=== PATIENT | male | born 1930 | race Caucasian/White ===

== ENCOUNTER 2016-11-02 15:36 | Inpatient (IN) | payer OTHER ==
[~2016-11-02] VITALS: Ht 177.8 cm; Wt 95.9 kg
[~2016-11-02 15:36] MED LIST: AMLODIPINE BESY10 MG PO; ANTIVERT25 MG PO; APIDRA100 UNITS/ SC; ASPIR 8181 M1 PO; ASPIR-LOW81 MG PO; ATIVAN0.5 MG PO; ATROVENT 0.06%15 ML BOTH NARES; AVAPRO300 MG PO; AZITHROMYCIN500 M1 PO; Antivert PO; Aspirin Chewable PO; BENICAR HCT 401 EACH PO; BENICAR HCT1 TABLE1 PO; BESIVANCE5 ML RIGHT EYE; FISH OIL 1,0001 EAC7 PO; FLOMAX0.4 MG PO; FLUORIDE0.5 MG PO; Fish Oil PO; HUMALOG100 UNIT/2 SC; HYDROCHLOROTH12.5 M3 PO; HYZAAR 100-11 TABLET PO; ILEVRO1.7 ML RIGHT EYE; IRBESARTAN300 MG PO; JANUVIA25 M1 PO; LANTUS 10100 UNITS/ SC; LANTUS 3 M100 UNITS/ SC; LANTUS 3 M100 UNITS1 SC; LO-DOSE ASPIRIN81 M1 PO; LOPRESSOR50 MG PO; LORAZEPAM0.5 MG PO; LOTEMAX5 GM RIGHT EYE; Lopid PO; Lopressor PO; MECLIZINE HCL25 MG PO; MOTION RELIEF25 MG PO; NIZORAL 2% CREA15 GM TP; NIZORAL A-D120 ML TP; NORVASC10 MG PO; OXYCONTIN10 MG PO; PATADAY2.5 ML BOTH EYES; PERCOCET 5/31 TABLET PO; PLAVIX75 MG PO; PRAVACHOL40 MG PO; PRAVASTATIN SOD40 MG PO; PROLENSA1.6 ML RIGHT EYE; RANITIDINE HCL150 M1 PO; SODIUM FLORIDE PO; SPIRONOLACT/HC1 EACH PO; TAMIFLU75 MG PO; TAMSULOSIN HCL0.4 MG PO; UNABLEOBTAIN; VITAMIN D-32000 UNI2 PO; VITAMIN D2000 INTUN PO; VITAMIN D2000 UNIT PO; WELCHOL625 MG PO
[2016-11-02 16:43] LABS: HEMATOCRIT 39.8 % (38.0-50.0); MCH 30.9 PG (29.0-34.0); MCHC 33.4 G/DL (30.0-36.0); MCV 92.3 FL (86-99); RBC DIS.WIDTH-CV 13.1 % (11.8-14.6); RBC DIS.WIDTH-SD 44.7 % (39-53); RED BLOOD COUNT 4.31 M/uL (4.00-5.50)
[2016-11-02 16:53] LABS: CHLORIDE 102 mEq/L (99-109); POTASSIUM 4.5 mEq/L (3.7-5.4); SODIUM 134 mEq/L (136-147)
[2016-11-02 16:56] LABS: GLUCOSE 157 mg/dL (70-99)
[2016-11-02 16:57] LABS: ANION GAP 9 MEQ/L (2-14)
[2016-11-02 16:58] LABS: TOTAL BILIRUBIN 0.5 mg/dL (0.0-1.0)
[2016-11-02 16:59] LABS: ALKALINE PHOSPHATASE 42 IU/L (3-129); GFR ESTIMATE (CALCULATED) 28 mL/min/
[2016-11-02 17:01] LABS: DIRECT BILIRUBIN 0.2 mg/dL (0.0-0.3); UREA NITROGEN (BUN) 23 mg/dL (9-23)
[2016-11-02 17:03] LABS: LIPASE 23 U/L (1.0-51.0)
[2016-11-02 17:31] LABS: MEAN PLAT.VOLUME 10.7 uM^3 (9.0-12.4); PLAT.SUFFICIENCY DECREASED; PLATELET COUNT 146 K/uL (156-360)
[2016-11-02 18:14] LABS: ADD MIUA? NO; BILIRUBIN NEGATIVE; BLOOD NEGATIVE; COLOR YELLOW ((YELLOW)); GLUCOSE (STRIP) NEGATIVE; KETONES NEGATIVE; LEUKOCYTES NEGATIVE; NITRITE NEGATIVE; PROTEIN (STRIP) NEGATIVE; SPECIFIC GRAVITY 1.009 (1.000-1.030); UCUL ADDED? NO; UROBILINOGEN 0.2 MG/DL (0.2-1.0)
[2016-11-02] MEDS ORDERED: HUMALOG100 UNIT/2 SC ×2 (19:33)
[2016-11-02] MEDS ORDERED: KETOCONAZOLE120 ML TP (19:34)
[2016-11-02] MEDS ORDERED: VITAMIN D31000 UNI2 PO (19:34)
[2016-11-02] MEDS ORDERED: TRULICITY1.5 MG/0.5 SC (19:35)
[2016-11-02] MEDS ORDERED: MAGNESIUM400 M1 PO (19:35)
[2016-11-02] MEDS ORDERED: IMODIUM A-D2 M2 PO (19:35)
[2016-11-02] MEDS ORDERED: PRAMIPEXOLE DI0.5 MG PO (19:36)
[2016-11-02] MEDS ORDERED: OXYCONTIN10 MG PO (19:36)
[2016-11-02] MEDS ORDERED: ZOFRAN4 MG PO (19:36)
[2016-11-02] MEDS ORDERED: IRON325 M1 PO (19:36)
[2016-11-02 22:22] VITALS: BP 142/75
[2016-11-02 23:11] LABS: POINT-OF-CARE METER ID UU13113725
[2016-11-03 00:28] VITALS: BP 135/62
[2016-11-03 03:55] VITALS: BP 136/66
[2016-11-03 05:43] LABS: POINT-OF-CARE METER ID UU13113725
[2016-11-03 06:50] VITALS: BP 138/65
[2016-11-03 08:15] LABS: ANION GAP 7 MEQ/L (2-14); CHLORIDE 103 MEQ/L (99-109); GFR ESTIMATE (CALCULATED) 41 mL/min/; GLUCOSE 144 mg/dL (70-99); POTASSIUM 4.1 MEQ/L (3.7-5.4); SAMPLE HEMOLYSIS CHECK 0; SAMPLE ICTERIC CHECK 0; SAMPLE LIPEMIA CHECK 0; SODIUM 136 MEQ/L (136-147); UREA NITROGEN (BUN) 18 mg/dL (9-23)
[2016-11-03 10:07] LABS: C DIFF TOXIN NEGATIVE (NEGATIVE)
[2016-11-03 10:16] LABS: PROBE CHECK PASS; SPECIMEN PROCESSING CONTROL PASS
[2016-11-03 10:32] LABS: HEMATOCRIT 40.8 % (38.0-50.0); MCH 30.9 PG (29.0-34.0); MCHC 32.8 G/DL (30.0-36.0); MCV 94.2 FL (86-99); MEAN PLAT.VOLUME 10.8 uM^3 (9.0-12.4); RBC DIS.WIDTH-CV 13.1 % (11.8-14.6); RED BLOOD COUNT 4.33 M/uL (4.00-5.50); WHITE BLOOD COUNT 8.6 K/uL (4.1-10.2)
[2016-11-03 10:35] LABS: PLATELET COUNT 200 K/uL (156-360)
[2016-11-03 15:22] VITALS: BP 112/57
[2016-11-03 23:36] VITALS: BP 145/65
[2016-11-04 06:43] VITALS: BP 112/65
[2016-11-04 06:53] LABS: ANION GAP 6 MEQ/L (2-14); CHLORIDE 102 MEQ/L (99-109); GFR ESTIMATE (CALCULATED) 44 mL/min/; GLUCOSE 189 mg/dL (70-99); POTASSIUM 3.9 MEQ/L (3.7-5.4); SAMPLE HEMOLYSIS CHECK 0; SAMPLE ICTERIC CHECK 0; SAMPLE LIPEMIA CHECK 0; SODIUM 135 MEQ/L (136-147); UREA NITROGEN (BUN) 20 mg/dL (9-23)
== END 2016-11-04 12:24 | DRG 683 ==
LOC: EME → EDBD 15:36 → EME 15:36 → EDOF 20:30 → 5EAST 20:30
PROVIDERS: Emergency Medicine; Hospitalist; Internal Medicine
DX: N17.9 Acute kidney failure, unspecified (principal); E87.1 Hypo-osmolality and hyponatremia; J98.11 Atelectasis; N18.4 Chronic kidney disease, stage 4 (severe); I12.9 Hypertensive chronic kidney disease with stage 1 through stage 4 chronic kidney disease, or unspecified chronic kidney disease; D69.6 Thrombocytopenia, unspecified; E11.22 Type 2 diabetes mellitus with diabetic chronic kidney disease; E78.5 Hyperlipidemia, unspecified; Z86.73 Personal history of transient ischemic attack (TIA), and cerebral infarction without residual deficits; K52.9 Noninfective gastroenteritis and colitis, unspecified; I44.1 Atrioventricular block, second degree; K80.20 Calculus of gallbladder without cholecystitis without obstruction; K42.9 Umbilical hernia without obstruction or gangrene; K21.9 Gastro-esophageal reflux disease without esophagitis; Z79.4 Long term (current) use of insulin; Z79.84 Long term (current) use of oral hypoglycemic drugs; Z88.2 Allergy status to sulfonamides; Z79.02 Long term (current) use of antithrombotics/antiplatelets; Z83.3 Family history of diabetes mellitus; Z82.49 Family history of ischemic heart disease and other diseases of the circulatory system; Z09 Encounter for follow-up examination after completed treatment for conditions other than malignant neoplasm
CPT/HCPCS: 74176; 80048; 80076; 81003; 82436; 82948; 83690; 84133; 84300; 85027; 87177; 87493; 93005; 99281; 99285; J1644; J1815; J7030; S0028

== ENCOUNTER 2016-11-18 14:37 | Observation (INO) | payer OTHER ==
[~2016-11-18] VITALS: Ht 177.8 cm; Wt 97.6 kg
[~2016-11-18 14:37] MED LIST changes: +IMODIUM A-D2 M2 PO; +IRON325 M1 PO; +KETOCONAZOLE120 ML TP; +MAGNESIUM400 M1 PO; +PRAMIPEXOLE DI0.5 MG PO; +TRULICITY1.5 MG/0.5 SC; +VITAMIN D31000 UNI2 PO; +ZOFRAN4 MG PO
[2016-11-18] MEDS ORDERED: ALDACTAZIDE 251 EACH PO (14:57)
[2016-11-18] MEDS ORDERED: MIRAPEX0.5 MG PO (14:58)
[2016-11-18] MEDS ORDERED: IRBESARTAN300 MG PO (14:58)
[2016-11-18] MEDS ORDERED: HYDROCHLOROTH12.5 M3 PO (14:59)
[2016-11-18] MEDS ORDERED: PLAVIX75 MG PO (14:59)
[2016-11-18] MEDS ORDERED: VITAMIN D31000 UNIT PO (15:00)
[2016-11-18] MEDS ORDERED: PRAVASTATIN SOD40 MG PO (15:01)
[2016-11-18] MEDS ORDERED: IRON325 M1 PO (15:01)
[2016-11-18] MEDS ORDERED: ONDANSETRON HCL4 MG PO (15:02)
[2016-11-18] MEDS ORDERED: JANUVIA25 M1 PO (15:02)
[2016-11-18 16:32] LABS: EOSINOPHIL (%) 1.2 % (0-5); EOSINOPHIL COUNT 0.1 K/uL (0-0.3); HEMATOCRIT 43.1 % (38.0-50.0); IMMATURE GRANULOCYTE (%) 0.3 % (0.0-0.7); INSTRUMENT ABS NEUTROPHIL CT 9.5 K/uL; LYMPHOCYTE COUNT 0.8 K/uL (1.0-2.8); MCH 30.8 PG (29.0-34.0); MCHC 33.4 G/DL (30.0-36.0); MCV 92.1 FL (86-99); MEAN PLAT.VOLUME 10.4 uM^3 (9.0-12.4); MONOCYTE (%) 5.6 % (3-12); MONOCYTE COUNT 0.6 K/uL (0-0.8); NEUTROPHIL (%) 85.3 % (45-76); NEUTROPHIL COUNT 9.5 K/uL (1.8-6.4); PLATELET COUNT 214 K/uL (156-360); RBC DIS.WIDTH-CV 12.7 % (11.8-14.6); RBC DIS.WIDTH-SD 43.1 % (39-53); RED BLOOD COUNT 4.68 M/uL (4.00-5.50); WHITE BLOOD COUNT 11.1 K/uL (4.1-10.2)
[2016-11-18 16:40] LABS: CHLORIDE 103 mEq/L (99-109); POTASSIUM 4.3 mEq/L (3.7-5.4); SODIUM 138 mEq/L (136-147)
[2016-11-18 16:42] LABS: GLUCOSE 110 mg/dL (70-99)
[2016-11-18 16:43] LABS: ANION GAP 9 MEQ/L (2-14)
[2016-11-18 16:44] LABS: TOTAL BILIRUBIN 0.3 mg/dL (0.0-1.0)
[2016-11-18 16:46] LABS: ALKALINE PHOSPHATASE 51 IU/L (3-129); GFR ESTIMATE (CALCULATED) 41 mL/min/
[2016-11-18 16:47] LABS: UREA NITROGEN (BUN) 20 mg/dL (9-23)
[2016-11-18 16:49] LABS: LIPASE 81 U/L (1.0-51.0)
[2016-11-18 18:41] LABS: ADD MIUA? NO; BILIRUBIN NEGATIVE; BLOOD NEGATIVE; COLOR STRAW ((YELLOW)); GLUCOSE (STRIP) NEGATIVE; KETONES NEGATIVE; LEUKOCYTES NEGATIVE; NITRITE NEGATIVE; PROTEIN (STRIP) 30; SPECIFIC GRAVITY 1.012 (1.000-1.030); UCUL ADDED? NO; UROBILINOGEN 0.2 MG/DL (0.2-1.0)
[2016-11-18] MEDS ORDERED: LANTUS 10100 UNITS/ SC (20:37)
[2016-11-18] MEDS ORDERED: OXYCONTIN10 MG PO (20:38)
[2016-11-18 21:49] VITALS: BP 149/70
[2016-11-18 22:52] LABS: POINT-OF-CARE METER ID UU13113831
[2016-11-19 03:59] VITALS: BP 99/47
[2016-11-19 06:35] LABS: ALKALINE PHOSPHATASE 37 IU/L (3-129); AMYLASE 24 IU/L (1-118); DIRECT BILIRUBIN 0.2 mg/dL (0.0-0.3); TOTAL BILIRUBIN 0.6 MG/DL (0.0-1.0)
[2016-11-19 08:19] LABS: POINT-OF-CARE METER ID UU14162513
[2016-11-19 08:47] VITALS: BP 115/56
[2016-11-19] MEDS ORDERED: BENTYL10 MG PO (12:31)
[2016-11-19 12:47] LABS: POINT-OF-CARE METER ID UU13113700
== END 2016-11-19 12:56 | disposition home or self-care (01) ==
LOC: EME 14:37 → EDOF 19:56 → 5WEST 21:27
PROVIDERS: Emergency Medicine; Internal Medicine Nephrology; Student in an Organized Health Care Education/Training Program
DX: K52.9 Noninfective gastroenteritis and colitis, unspecified (principal); N17.9 Acute kidney failure, unspecified; I12.9 Hypertensive chronic kidney disease with stage 1 through stage 4 chronic kidney disease, or unspecified chronic kidney disease; N18.9 Chronic kidney disease, unspecified; I25.10 Atherosclerotic heart disease of native coronary artery without angina pectoris; E78.5 Hyperlipidemia, unspecified; E11.9 Type 2 diabetes mellitus without complications; G25.81 Restless legs syndrome; Z86.73 Personal history of transient ischemic attack (TIA), and cerebral infarction without residual deficits
CPT/HCPCS: 74176; 80053; 80076; 81003; 82150; 82948; 83605; 83690; 85025; 87177; 87329; 87493; 87506; 99281; 99285; G0378; J1815; J2405; J7030

== ENCOUNTER 2017-02-12 13:52 | Emergency (ER) | payer OTHER ==
[~2017-02-12] VITALS: Ht 177.8 cm; Wt 102.0 kg
[~2017-02-12 13:52] MED LIST changes: +ALDACTAZIDE 251 EACH PO; +BENTYL10 MG PO; +MIRAPEX0.5 MG PO; +ONDANSETRON HCL4 MG PO; +VITAMIN D31000 UNIT PO
[2017-02-12 14:16] LABS: POINT-OF-CARE METER ID UU13113800
[2017-02-12 15:38] LABS: POINT-OF-CARE METER ID UU13113800
[2017-02-12 15:54] VITALS: BP 159/65
== END 2017-02-12 15:57 | disposition home or self-care (01) ==
LOC: EME 13:52
PROVIDERS: Physician Assistant Medical
DX: E16.2 Hypoglycemia, unspecified (principal); K21.9 Gastro-esophageal reflux disease without esophagitis; I10 Essential (primary) hypertension; E78.5 Hyperlipidemia, unspecified; G47.30 Sleep apnea, unspecified; Z86.73 Personal history of transient ischemic attack (TIA), and cerebral infarction without residual deficits
CPT/HCPCS: 82948; 99281; 99283

== ENCOUNTER 2017-04-17 05:35 | Inpatient (IN) | payer OTHER ==
[~2017-04-17] VITALS: Ht 177.8 cm; Wt 107.7 kg
[~2017-04-17 05:35] MED LIST changes: +ASPIRIN81 M2 PO; +VITAMIN B125000 MCG PO
[2017-04-17 06:20] LABS: POINT-OF-CARE METER ID UU14174212
[2017-04-17 06:47] VITALS: BP 137/67
[2017-04-17 09:38] LABS: POINT-OF-CARE METER ID UU13113675
[2017-04-17 10:29] LABS: POINT-OF-CARE METER ID UU13113675; POINT-OF-CARE USER ID ADMSLT55
[2017-04-17 11:32] LABS: POINT-OF-CARE METER ID UU13113675
[2017-04-17 13:06] VITALS: BP 151/70
[2017-04-17 15:37] VITALS: BP 150/68
[2017-04-17 16:23] LABS: POINT-OF-CARE METER ID UU14188577
[2017-04-17 20:00] VITALS: BP 152/84
[2017-04-17 21:16] LABS: POINT-OF-CARE METER ID UU14208753
[2017-04-17 23:08] VITALS: BP 182/87
[2017-04-17 23:57] VITALS: BP 150/88
[2017-04-18 05:52] VITALS: BP 180/93
[2017-04-18 06:14] LABS: POINT-OF-CARE METER ID UU14149397
[2017-04-18 06:44] LABS: HEMATOCRIT 40.9 % (38.0-50.0); MCV 90.9 FL (86-99)
[2017-04-18 07:31] LABS: ANION GAP 11 MEQ/L (2-14); CHLORIDE 96 MEQ/L (99-109); GFR ESTIMATE (CALCULATED) > 59 mL/min/; GLUCOSE 230 mg/dL (70-99); POTASSIUM 4.2 MEQ/L (3.7-5.4); SAMPLE HEMOLYSIS CHECK 0; SAMPLE ICTERIC CHECK 0; SAMPLE LIPEMIA CHECK 0; SODIUM 129 MEQ/L (136-147); UREA NITROGEN (BUN) 18 mg/dL (9-23)
[2017-04-18 11:46] LABS: POINT-OF-CARE METER ID UU14208753
[2017-04-18 12:04] VITALS: BP 139/65
[2017-04-18 15:30] VITALS: BP 198/84
[2017-04-18 16:29] VITALS: BP 170/75
[2017-04-18 16:36] LABS: POINT-OF-CARE METER ID UU14149397
[2017-04-18 21:19] LABS: POINT-OF-CARE METER ID UU14149397
[2017-04-19 00:12] VITALS: BP 176/86
[2017-04-19 05:59] LABS: MCV 88.2 FL (86-99)
[2017-04-19 06:30] LABS: POINT-OF-CARE METER ID UU14149397
[2017-04-19 07:53] VITALS: BP 171/78
[2017-04-19 12:19] LABS: POINT-OF-CARE METER ID UU14188577
[2017-04-19 15:15] VITALS: BP 149/70
[2017-04-19 16:48] LABS: POINT-OF-CARE METER ID UU14208753
[2017-04-19 21:15] LABS: POINT-OF-CARE METER ID UU14117124
[2017-04-20 00:19] VITALS: BP 111/61
[2017-04-20 06:16] LABS: POINT-OF-CARE METER ID UU14208753
[2017-04-20 08:29] VITALS: BP 103/56
[2017-04-20] MEDS ORDERED: BENADRYL25 MG PO (10:22)
[2017-04-20] MEDS ORDERED: TYLENOL REGULA325 MG PO (10:24)
[2017-04-20] MEDS ORDERED: SENNA PLUS TAB1 EACH PO (10:24)
[2017-04-20] MEDS ORDERED: Salonpas 4% Patch TD (10:24)
[2017-04-20] MEDS ORDERED: OXYCONTIN10 MG PO (10:25)
[2017-04-20] MEDS ORDERED: ELIQUIS2.5 MG PO (10:25)
[2017-04-20] MEDS ORDERED: OXYCODONE HCL5 MG PO (10:25)
[2017-04-20 11:16] LABS: POINT-OF-CARE METER ID UU14208753
== END 2017-04-20 14:51 | DRG 470 ==
LOC: 3EAST 05:35 → 2SOUTH 05:35 → ENRESERV 07:43 → 2SOUTH 11:33 → 3EAST 12:37 → 2SOUTH 14:01 → 3EAST 04-20 14:51
PROVIDERS: Orthopaedic Surgery
PROC: 0SRD0J9 Replacement of Left Knee Joint with Synthetic Substitute, Cemented, Open Approach (ICD-10-PCS; principal; 2017-04-17)
DX: M17.12 Unilateral primary osteoarthritis, left knee (principal); I10 Essential (primary) hypertension; Z83.3 Family history of diabetes mellitus; Z86.73 Personal history of transient ischemic attack (TIA), and cerebral infarction without residual deficits; Z82.49 Family history of ischemic heart disease and other diseases of the circulatory system; H91.90 Unspecified hearing loss, unspecified ear; G47.30 Sleep apnea, unspecified; E11.9 Type 2 diabetes mellitus without complications; E66.9 Obesity, unspecified; Z68.34 Body mass index [BMI] 34.0-34.9, adult
CPT/HCPCS: 71010; 80048; 82948; 85014; 85018; 94799; 97530 GP; C1713; C1776; J0131; J0360; J0690; J1170; J1815; J1885; J2250; J2405; J2795; J3010; J7030; J7050

== ENCOUNTER 2017-06-01 18:47 | Observation (INO) | payer OTHER ==
[~2017-06-01] VITALS: Ht 177.8 cm; Wt 94.6 kg
[~2017-06-01 18:47] MED LIST changes: +BENADRYL25 MG PO; +ELIQUIS2.5 MG PO; +OXYCODONE HCL5 MG PO; +SENNA PLUS TAB1 EACH PO; +Salonpas 4% Patch TD; +TYLENOL REGULA325 MG PO
[2017-06-01 19:08] LABS: POINT-OF-CARE METER ID UU13113702
[2017-06-01 19:48] LABS: HEMATOCRIT 34.2 % (38.0-50.0); MCH 30.2 PG (29.0-34.0); MCHC 32.5 G/DL (30.0-36.0); MCV 93.2 FL (86-99); MEAN PLAT.VOLUME 10.3 uM^3 (9.0-12.4); PLATELET COUNT 287 K/uL (156-360); RBC DIS.WIDTH-CV 14.4 % (11.8-14.6); RBC DIS.WIDTH-SD 50.1 % (39-53); RED BLOOD COUNT 3.67 M/uL (4.00-5.50); WHITE BLOOD COUNT 8.4 K/uL (4.1-10.2)
[2017-06-01 19:55] LABS: CHLORIDE 104 mEq/L (99-109); POTASSIUM 4.7 mEq/L (3.7-5.4); SODIUM 139 mEq/L (136-147)
[2017-06-01 19:57] LABS: GLUCOSE 64 mg/dL (70-99)
[2017-06-01 19:58] LABS: ANION GAP 8 MEQ/L (2-14)
[2017-06-01 19:59] LABS: ADD MIUA? NO; BILIRUBIN NEGATIVE; BLOOD NEGATIVE; COLOR YELLOW ((YELLOW)); GLUCOSE (STRIP) NEGATIVE; KETONES NEGATIVE; LEUKOCYTES NEGATIVE; NITRITE NEGATIVE; PROTEIN (STRIP) 30; SPECIFIC GRAVITY 1.016 (1.000-1.030); UCUL ADDED? NO; UROBILINOGEN 0.2 MG/DL (0.2-1.0)
[2017-06-01 20:01] LABS: GFR ESTIMATE (CALCULATED) 51 mL/min/ (58.99-99999); UREA NITROGEN (BUN) 29 mg/dL (9-23)
[2017-06-01 20:09] LABS: TROP-I INTERPRETATION NEGATIVE; TROPONIN-I 0.01 ng/mL (0.0-0.30)
[2017-06-01 20:56] LABS: POINT-OF-CARE METER ID UU13113702
[2017-06-01] MEDS ORDERED: HYDROCHLOROTH12.5 M3 PO (21:06)
[2017-06-01] MEDS ORDERED: MIRALAX255 GM PO (21:07)
[2017-06-01] MEDS ORDERED: LANTUS 10100 UNITS/ SC (21:08)
[2017-06-01] MEDS ORDERED: SANTYL30 GM TP (21:10)
[2017-06-01] MEDS ORDERED: FLOMAX0.4 MG PO (21:11)
[2017-06-01] MEDS ORDERED: PRILOSEC OTC20 MG PO (21:12)
[2017-06-01] MEDS ORDERED: PLAVIX75 MG PO (21:12)
[2017-06-02 00:16] LABS: POINT-OF-CARE METER ID UU13113831
[2017-06-02 00:20] VITALS: BP 163/71
[2017-06-02 00:51] LABS: TROP-I INTERPRETATION NEGATIVE; TROPONIN-I < 0.01 ng/mL (0.0-0.30)
[2017-06-02 04:46] LABS: POINT-OF-CARE METER ID UU13113831
[2017-06-02 05:02] VITALS: BP 156/72
[2017-06-02 05:18] LABS: EOSINOPHIL (%) 6.3 % (0-5); EOSINOPHIL COUNT 0.4 K/uL (0-0.3); HEMATOCRIT 32.6 % (38.0-50.0); IMMATURE GRANULOCYTE (%) 0.3 % (0.0-0.7); INSTRUMENT ABS NEUTROPHIL CT 3.1 K/uL; LYMPHOCYTE COUNT 2.7 K/uL (1.0-2.8); MCH 29.6 PG (29.0-34.0); MCHC 31.9 G/DL (30.0-36.0); MCV 92.9 FL (86-99); MONOCYTE (%) 8.7 % (3-12); MONOCYTE COUNT 0.6 K/uL (0-0.8); NEUTROPHIL (%) 44.4 % (45-76); NEUTROPHIL COUNT 3.1 K/uL (1.8-6.4); RBC DIS.WIDTH-CV 14.5 % (11.8-14.6); RBC DIS.WIDTH-SD 48.8 % (39-53); RED BLOOD COUNT 3.51 M/uL (4.00-5.50); WHITE BLOOD COUNT 6.9 K/uL (4.1-10.2)
[2017-06-02 05:37] LABS: TROP-I INTERPRETATION NEGATIVE; TROPONIN-I 0.01 ng/mL (0.0-0.30)
[2017-06-02 05:48] LABS: MEAN PLAT.VOLUME 10.7 uM^3 (9.0-12.4); PLAT.SUFFICIENCY ADEQUATE; PLATELET COUNT 252 K/uL (156-360)
[2017-06-02 06:03] LABS: ALKALINE PHOSPHATASE 52 IU/L (3-129); ANION GAP 8 MEQ/L (2-14); CHLORIDE 103 MEQ/L (99-109); GFR ESTIMATE (CALCULATED) 56 mL/min/ (58.99-99999); GLUCOSE 117 mg/dL (70-99); POTASSIUM 4.2 MEQ/L (3.7-5.4); SAMPLE HEMOLYSIS CHECK 0; SAMPLE ICTERIC CHECK 0; SAMPLE LIPEMIA CHECK 0; SODIUM 139 MEQ/L (136-147); TOTAL BILIRUBIN 0.3 MG/DL (0.0-1.0); UREA NITROGEN (BUN) 26 mg/dL (9-23)
[2017-06-02 07:51] VITALS: BP 167/79
[2017-06-02 08:08] LABS: POINT-OF-CARE METER ID UU13113831
[2017-06-02 08:34] LABS: POINT-OF-CARE METER ID UU13113831
[2017-06-02 11:16] VITALS: BP 133/63
[2017-06-02 12:02] LABS: POINT-OF-CARE METER ID UU13113831
[2017-06-02 15:07] VITALS: BP 125/59
[2017-06-02 18:14] LABS: POINT-OF-CARE METER ID UU14162513
== END 2017-06-02 20:33 | disposition home or self-care (01) ==
LOC: EME 18:47 → EDOF 21:59 → ENRESERV 22:06 → 5WEST 23:09
PROVIDERS: Emergency Medicine; Hospitalist
DX: R55 Syncope and collapse (principal); E11.649 Type 2 diabetes mellitus with hypoglycemia without coma; R94.31 Abnormal electrocardiogram [ECG] [EKG]; I10 Essential (primary) hypertension; D64.9 Anemia, unspecified; I44.1 Atrioventricular block, second degree; E78.5 Hyperlipidemia, unspecified; Z86.73 Personal history of transient ischemic attack (TIA), and cerebral infarction without residual deficits; Z79.4 Long term (current) use of insulin; M79.89 Other specified soft tissue disorders; Z79.02 Long term (current) use of antithrombotics/antiplatelets; Z79.82 Long term (current) use of aspirin; Z79.891 Long term (current) use of opiate analgesic; Z79.01 Long term (current) use of anticoagulants; Z88.2 Allergy status to sulfonamides
CPT/HCPCS: 71020; 80048; 80076; 81003; 82948; 84484; 85025; 85027; 93005; 99281; 99284; G0378; J1644

== ENCOUNTER 2017-06-05 10:15 | Observation (INO) | payer OTHER ==
[~2017-06-05] VITALS: Ht 177.8 cm; Wt 93.1 kg
[~2017-06-05 10:15] MED LIST changes: +MIRALAX255 GM PO; +PRILOSEC OTC20 MG PO; +SANTYL30 GM TP
[2017-06-05 11:17] LABS: EOSINOPHIL (%) 2.7 % (0-5); EOSINOPHIL COUNT 0.2 K/uL (0-0.3); HEMATOCRIT 34.9 % (38.0-50.0); IMMATURE GRANULOCYTE (%) 0.4 % (0.0-0.7); INSTRUMENT ABS NEUTROPHIL CT 5.9 K/uL; LYMPHOCYTE COUNT 1.4 K/uL (1.0-2.8); MCH 30.1 PG (29.0-34.0); MCHC 32.4 G/DL (30.0-36.0); MCV 93.1 FL (86-99); MEAN PLAT.VOLUME 10.6 uM^3 (9.0-12.4); MONOCYTE (%) 7.9 % (3-12); MONOCYTE COUNT 0.7 K/uL (0-0.8); NEUTROPHIL (%) 71.8 % (45-76); NEUTROPHIL COUNT 5.9 K/uL (1.8-6.4); PLATELET COUNT 212 K/uL (156-360); RBC DIS.WIDTH-CV 14.2 % (11.8-14.6); RBC DIS.WIDTH-SD 48.4 % (39-53); RED BLOOD COUNT 3.75 M/uL (4.00-5.50); WHITE BLOOD COUNT 8.2 K/uL (4.1-10.2)
[2017-06-05 11:32] LABS: CHLORIDE 103 mEq/L (99-109); GLUCOSE 117 mg/dL (70-99); POTASSIUM 3.8 mEq/L (3.7-5.4); SODIUM 137 mEq/L (136-147)
[2017-06-05 11:34] LABS: ANION GAP 12 MEQ/L (2-14)
[2017-06-05 11:38] LABS: GFR ESTIMATE (CALCULATED) 51 mL/min/ (58.99-99999); UREA NITROGEN (BUN) 28 mg/dL (9-23)
[2017-06-05 11:40] LABS: TROP-I INTERPRETATION NEGATIVE; TROPONIN-I 0.01 ng/mL (0.0-0.30)
[2017-06-05 12:31] LABS: INTER. NORMALIZED RATIO 1.1
[2017-06-05 12:34] LABS: PTT 29.1 SEC (25-37)
[2017-06-05 13:51] LABS: ADD MIUA? NO; BILIRUBIN NEGATIVE; BLOOD NEGATIVE; COLOR YELLOW ((YELLOW)); GLUCOSE (STRIP) NEGATIVE; KETONES NEGATIVE; LEUKOCYTES NEGATIVE; NITRITE NEGATIVE; PROTEIN (STRIP) 30; SPECIFIC GRAVITY 1.019 (1.000-1.030); UCUL ADDED? NO; UROBILINOGEN 0.2 MG/DL (0.2-1.0)
[2017-06-05 15:56] VITALS: BP 176/74
[2017-06-05 15:58] VITALS: BP 154/67
[2017-06-05 16:00] VITALS: BP 143/63
[2017-06-05 17:22] LABS: POINT-OF-CARE METER ID UU13113831
[2017-06-05 20:19] LABS: TROP-I INTERPRETATION NEGATIVE; TROPONIN-I < 0.01 ng/mL (0.0-0.30)
[2017-06-05 21:39] LABS: POINT-OF-CARE METER ID UU14162513
[2017-06-05 23:17] VITALS: BP 172/75
[2017-06-06 01:05] LABS: TROP-I INTERPRETATION NEGATIVE; TROPONIN-I < 0.01 ng/mL (0.0-0.30)
[2017-06-06 03:44] VITALS: BP 164/74
[2017-06-06 08:16] VITALS: BP 155/72
[2017-06-06 08:16] LABS: POINT-OF-CARE METER ID UU13113831
[2017-06-06 08:43] LABS: HEMATOCRIT 34.8 % (38.0-50.0); MCH 29.2 PG (29.0-34.0); MCHC 31.6 G/DL (30.0-36.0); MCV 92.3 FL (86-99); MEAN PLAT.VOLUME 10.1 uM^3 (9.0-12.4); PLATELET COUNT 250 K/uL (156-360); RBC DIS.WIDTH-SD 47.3 % (39-53); RED BLOOD COUNT 3.77 M/uL (4.00-5.50); WHITE BLOOD COUNT 7.2 K/uL (4.1-10.2)
[2017-06-06 09:15] LABS: ALKALINE PHOSPHATASE 51 IU/L (3-129); ANION GAP 5 MEQ/L (2-14); CHLORIDE 102 MEQ/L (99-109); GFR ESTIMATE (CALCULATED) 56 mL/min/ (58.99-99999); GLUCOSE 163 mg/dL (70-99); LIPASE 49 U/L (1.0-51.0); POTASSIUM 4.5 MEQ/L (3.7-5.4); SAMPLE HEMOLYSIS CHECK 0; SAMPLE ICTERIC CHECK 0; SAMPLE LIPEMIA CHECK 0; SODIUM 137 MEQ/L (136-147); UREA NITROGEN (BUN) 22 mg/dL (9-23)
[2017-06-06 09:39] LABS: TOTAL BILIRUBIN 0.5 MG/DL (0.0-1.0)
[2017-06-06 11:50] VITALS: BP 157/66
[2017-06-06 12:23] LABS: POINT-OF-CARE METER ID UU14162513
[2017-06-06 15:38] VITALS: BP 146/66
== END 2017-06-06 16:57 | disposition home or self-care (01) ==
LOC: EME 10:15 → ENRESERV 13:37 → EDOF 13:48 → 5WEST 13:48 → ENRESERV 13:52 → 5WEST 15:26
PROVIDERS: Emergency Medicine; Hospitalist; Internal Medicine
DX: R55 Syncope and collapse (principal); R94.31 Abnormal electrocardiogram [ECG] [EKG]; I44.0 Atrioventricular block, first degree; L89.629 Pressure ulcer of left heel, unspecified stage; E11.9 Type 2 diabetes mellitus without complications; Z79.4 Long term (current) use of insulin; I10 Essential (primary) hypertension; E78.5 Hyperlipidemia, unspecified; Z86.73 Personal history of transient ischemic attack (TIA), and cerebral infarction without residual deficits; M19.90 Unspecified osteoarthritis, unspecified site; G47.30 Sleep apnea, unspecified; Z79.82 Long term (current) use of aspirin; Z79.02 Long term (current) use of antithrombotics/antiplatelets; Z88.2 Allergy status to sulfonamides
CPT/HCPCS: 70450; 71010; 80048; 80053; 81003; 82948; 83690; 84484; 85025; 85027; 85610; 85730; 86850; 86900; 86901; 93005; 93306; 93880; 94799; 99281; 99285; C1755; G0378; J1650; J2405; J7030

== ENCOUNTER 2017-06-21 08:54 | Observation (INO) | payer OTHER ==
[~2017-06-21] VITALS: Ht 177.8 cm; Wt 91.7 kg
[2017-06-21 09:24] LABS: HEMOGLOBIN 12.6 G/DL (12.5-16.6); MCH 30.3 PG (29.0-34.0); MCHC 32.3 G/DL (30.0-36.0); MCV 93.8 FL (86-99); RBC DIS.WIDTH-CV 14.2 % (11.8-14.6); RED BLOOD COUNT 4.16 M/uL (4.00-5.50); WHITE BLOOD COUNT 7.6 K/uL (4.1-10.2)
[2017-06-21 09:28] LABS: INTER. NORMALIZED RATIO 0.9
[2017-06-21 09:39] LABS: AMYLASE 64 IU/L (1-118); CHLORIDE 101 mEq/L (99-109); POTASSIUM 4.1 mEq/L (3.7-5.4); SODIUM 133 mEq/L (136-147)
[2017-06-21 09:41] LABS: GLUCOSE 236 mg/dL (70-99)
[2017-06-21 09:42] LABS: TROP-I INTERPRETATION NEGATIVE; TROPONIN-I 0.02 ng/mL (0.0-0.30)
[2017-06-21 09:44] LABS: SERUM ETHYL ALCOHOL < 10 mg/dL
[2017-06-21 09:45] LABS: CREATININE 1.7 mg/dL (0.6-1.3); GFR ESTIMATE (CALCULATED) 41 mL/min/ (58.99-99999)
[2017-06-21 09:46] LABS: UREA NITROGEN (BUN) 30 mg/dL (9-23)
[2017-06-21 09:48] LABS: LIPASE 59 U/L (1.0-51.0)
[2017-06-21 10:01] LABS: BASOPHIL (%) 0.5 % (0-1); EOSINOPHIL (%) 6.1 % (0-5); EOSINOPHIL COUNT 0.5 K/uL (0-0.3); IMMATURE GRANULOCYTE (%) 0.5 % (0.0-0.7); LYMPHOCYTE (%) 38.8 % (15-42); LYMPHOCYTE COUNT 2.9 K/uL (1.0-2.8); MONOCYTE (%) 6.5 % (3-12); MONOCYTE COUNT 0.5 K/uL (0-0.8); NEUTROPHIL (%) 47.6 % (45-76); NEUTROPHIL COUNT 3.6 K/uL (1.8-6.4); PLAT.SUFFICIENCY ADEQUATE
[2017-06-21 10:03] LABS: PLATELET COUNT 167 K/uL (156-360)
[2017-06-21] MEDS ORDERED: KEFLEX500 MG PO (11:57)
[2017-06-21 13:27] LABS: HDL CHOLESTEROL 39 MG/DL (Desirable>=40); LDL CHOLESTEROL 37 mg/dL (Desirable<100); NON-HDL CHOLESTEROL 52 mg/dL (Desirable<160); TOTAL CHOLESTEROL 91 mg/dL (Desirable<200); TRIGLYCERIDES 76 MG/DL (Normal: <150)
[2017-06-21 13:31] LABS: Estimated Average Glucose 200 mg/dL (70-123)
[2017-06-21 13:33] LABS: HEMOGLOBIN A1c (GLYCOHEMOGLOB) 8.6 % HGB (Below 5.7)
[2017-06-21 16:11] LABS: APPEARANCE CLEAR ((CLEAR)); BILIRUBIN NEGATIVE; BLOOD NEGATIVE; COLOR YELLOW ((YELLOW)); GLUCOSE (STRIP) >=500; KETONES NEGATIVE; LEUKOCYTES NEGATIVE; NITRITE NEGATIVE; PROTEIN (STRIP) NEGATIVE; SPECIFIC GRAVITY 1.016 (1.000-1.030); UCUL ADDED? NO; UROBILINOGEN 0.2 MG/DL (0.2-1.0)
[2017-06-21 16:21] LABS: AMPHETAMINE NEGATIVE (500 ng/mL); BARBITURATES NEGATIVE (200 ng/mL); BENZODIAZEPINES NEGATIVE (150 ng/mL); BUPRENORPHINE NEGATIVE (10 ng/mL); COCAINE NEGATIVE (150 ng/mL); METHADONE NEGATIVE (200 ng/mL); METHAMPHETAMINE NEGATIVE (500 ng/mL); OPIATES (MORPHINE) NEGATIVE (100 ng/mL); OXYCODONE PRESUMPTIVE POSITIVE (100 ng/mL); PHENCYCLIDINE NEGATIVE (25 ng/mL); PROPOXYPHENE NEGATIVE (300 ng/mL); THC CANNABINOIDS NEGATIVE (50 ng/mL); TRICYCLIC ANTIDEPRESSANTS NEGATIVE (300 ng/mL)
[2017-06-21 17:38] LABS: TROP-I INTERPRETATION NEGATIVE; TROPONIN-I 0.01 ng/mL (0.0-0.30)
[2017-06-21 19:20] VITALS: BP 162/78
[2017-06-21 22:08] LABS: TROP-I INTERPRETATION NEGATIVE; TROPONIN-I < 0.01 ng/mL (0.0-0.30)
[2017-06-21 23:54] VITALS: BP 144/70
[2017-06-22 04:12] VITALS: BP 145/67
[2017-06-22 08:00] VITALS: BP 146/70
[2017-06-22 11:03] VITALS: BP 142/63
== END 2017-06-22 14:16 | disposition home or self-care (01) ==
LOC: EME 08:54 → EDOF 11:02 → 5WEST 11:02 → ENRESERV 11:03 → 5WEST 16:48
PROVIDERS: Emergency Medicine; Internal Medicine
DX: G45.9 Transient cerebral ischemic attack, unspecified (principal); L89.620 Pressure ulcer of left heel, unstageable; R21 Rash and other nonspecific skin eruption; I12.9 Hypertensive chronic kidney disease with stage 1 through stage 4 chronic kidney disease, or unspecified chronic kidney disease; E11.22 Type 2 diabetes mellitus with diabetic chronic kidney disease; N18.3 Chronic kidney disease, stage 3 (moderate); E78.5 Hyperlipidemia, unspecified; Z79.4 Long term (current) use of insulin; Z86.73 Personal history of transient ischemic attack (TIA), and cerebral infarction without residual deficits; I44.0 Atrioventricular block, first degree; Z96.652 Presence of left artificial knee joint; E87.1 Hypo-osmolality and hyponatremia; Z79.02 Long term (current) use of antithrombotics/antiplatelets; G47.30 Sleep apnea, unspecified; K58.9 Irritable bowel syndrome, unspecified; M19.90 Unspecified osteoarthritis, unspecified site; Z86.010 Personal history of colon polyps; Z90.10 Acquired absence of unspecified breast and nipple; Z79.82 Long term (current) use of aspirin; Z88.2 Allergy status to sulfonamides
CPT/HCPCS: 70450; 70544; 70549; 70551; 80048; 80061; 81003; 82150; 82948; 83036; 83690; 84484; 85025; 85610; 85730; 86850; 86900; 86901; 93005; 99281; 99285; G0378; G0480; J1644; J1815

== ENCOUNTER 2017-08-21 20:41 | Inpatient (IN) | payer OTHER ==
[~2017-08-21] VITALS: Ht 177.8 cm; Wt 98.0 kg
[~2017-08-21 20:41] MED LIST changes: +KEFLEX500 MG PO; +VITAMIN B-121000 MC3 PO; -VITAMIN B125000 MCG PO
[2017-08-21 21:33] LABS: HEMATOCRIT 40.9 % (38.0-50.0); HEMOGLOBIN 13.4 G/DL (12.5-16.6); MCH 30.2 PG (29.0-34.0); MCHC 32.8 G/DL (30.0-36.0); MCV 92.1 FL (86-99); PLATELET COUNT 209 K/uL (156-360); RBC DIS.WIDTH-CV 13.9 % (11.8-14.6); RBC DIS.WIDTH-SD 47.1 % (39-53); RED BLOOD COUNT 4.44 M/uL (4.00-5.50); WHITE BLOOD COUNT 13.7 K/uL (4.1-10.2)
[2017-08-21 21:42] LABS: CHLORIDE 108 mEq/L (99-109); POTASSIUM 3.9 mEq/L (3.7-5.4); SODIUM 142 mEq/L (136-147)
[2017-08-21 21:45] LABS: TOTAL PROTEIN 6.8 g/dL (6.4-8.3)
[2017-08-21 21:46] LABS: TOTAL BILIRUBIN 0.3 mg/dL (0.0-1.0)
[2017-08-21 21:48] LABS: ALKALINE PHOSPHATASE 58 IU/L (3-129); CREATININE 1.4 mg/dL (0.6-1.3); GFR ESTIMATE (CALCULATED) 51 mL/min/ (58.99-99999)
[2017-08-21 21:49] LABS: UREA NITROGEN (BUN) 26 mg/dL (9-23)
[2017-08-21 21:50] LABS: AST (GOT) 14 IU/L (2-34)
[2017-08-21 21:51] LABS: ALT (GPT) 9 IU/L (3-49)
[2017-08-21 21:54] LABS: TROP-I INTERPRETATION NEGATIVE; TROPONIN-I < 0.01 ng/mL (0.0-0.30)
[2017-08-21 21:58] LABS: GLUCOSE 38 mg/dL (70-99)
[2017-08-21] MEDS ORDERED: VITAMIN D31000 UNIT PO (23:13)
[2017-08-21] MEDS ORDERED: OXYCONTIN10 MG PO (23:16)
[2017-08-21] MEDS ORDERED: ELIQUIS2.5 MG PO (23:16)
[2017-08-21] MEDS ORDERED: LANTUS 3 M100 UNITS1 SC (23:21)
[2017-08-21] MEDS ORDERED: CARVEDILOL3.125 MG PO (23:23)
[2017-08-21] MEDS ORDERED: HUMALOG100 UNIT/2 SC (23:25)
[2017-08-22 01:48] LABS: APPEARANCE CLEAR ((CLEAR)); BILIRUBIN NEGATIVE; BLOOD NEGATIVE; COLOR YELLOW ((YELLOW)); GLUCOSE (STRIP) NEGATIVE; KETONES NEGATIVE; LEUKOCYTES NEGATIVE; NITRITE NEGATIVE; PROTEIN (STRIP) 100; SPECIFIC GRAVITY 1.017 (1.000-1.030); UROBILINOGEN 0.2 MG/DL (0.2-1.0)
[2017-08-22 01:50] LABS: BACTERIA NONE SEEN /HPF; EPITHELIAL CELLS NONE SEEN /HPF; MUCUS NONE SEEN /LPF; RED BLOOD CELLS 0-5 /HPF (0-5); UCUL ADDED? NO; WHITE BLOOD CELLS 0-5 /HPF (0-5)
[2017-08-22 02:32] VITALS: BP 161/89
[2017-08-22 05:35] LABS: HEMATOCRIT 38.2 % (38.0-50.0); HEMOGLOBIN 12.5 G/DL (12.5-16.6); MCH 29.8 PG (29.0-34.0); MCHC 32.7 G/DL (30.0-36.0); MCV 91.2 FL (86-99); PLATELET COUNT 195 K/uL (156-360); RBC DIS.WIDTH-CV 13.8 % (11.8-14.6); RBC DIS.WIDTH-SD 46.1 % (39-53); RED BLOOD COUNT 4.19 M/uL (4.00-5.50); WHITE BLOOD COUNT 8.6 K/uL (4.1-10.2)
[2017-08-22 06:02] LABS: TROP-I INTERPRETATION NEGATIVE; TROPONIN-I 0.02 ng/mL (0.0-0.30)
[2017-08-22 06:07] LABS: CHLORIDE 105 MEQ/L (99-109); CREATININE 1.2 MG/DL (0.6-1.3); GFR ESTIMATE (CALCULATED) > 59 mL/min/ (58.99-99999); POTASSIUM 4.2 MEQ/L (3.7-5.4); SODIUM 139 MEQ/L (136-147); UREA NITROGEN (BUN) 23 mg/dL (9-23)
[2017-08-22 06:08] LABS: GLUCOSE 165 mg/dL (70-99)
[2017-08-22 07:20] VITALS: BP 164/72
[2017-08-22 11:17] LABS: TROP-I INTERPRETATION NEGATIVE; TROPONIN-I < 0.01 ng/mL (0.0-0.30)
[2017-08-22 14:14] LABS: HEMOGLOBIN A1c (GLYCOHEMOGLOB) 7.1 % (Below 5.7)
[2017-08-22 16:54] VITALS: BP 162/75
[2017-08-22 19:27] VITALS: BP 151/66
[2017-08-22 23:17] VITALS: BP 129/58
[2017-08-23 03:20] VITALS: BP 136/64
[2017-08-23 06:14] LABS: BASOPHIL (%) 0.7 % (0-1); BASOPHIL COUNT 0.1 K/uL (0-0.1); EOSINOPHIL (%) 8.1 % (0-5); EOSINOPHIL COUNT 0.6 K/uL (0-0.3); HEMATOCRIT 40.4 % (38.0-50.0); HEMOGLOBIN 12.9 G/DL (12.5-16.6); IMMATURE GRANULOCYTE (%) 0.3 % (0.0-0.7); LYMPHOCYTE (%) 39.1 % (15-42); LYMPHOCYTE COUNT 2.8 K/uL (1.0-2.8); MCHC 31.9 G/DL (30.0-36.0); MCV 90.8 FL (86-99); MONOCYTE (%) 7.7 % (3-12); MONOCYTE COUNT 0.6 K/uL (0-0.8); NEUTROPHIL (%) 44.1 % (45-76); NEUTROPHIL COUNT 3.2 K/uL (1.8-6.4); PLATELET COUNT 213 K/uL (156-360); RBC DIS.WIDTH-CV 13.8 % (11.8-14.6); RBC DIS.WIDTH-SD 46.1 % (39-53); RED BLOOD COUNT 4.45 M/uL (4.00-5.50); WHITE BLOOD COUNT 7.2 K/uL (4.1-10.2)
[2017-08-23 06:43] LABS: ALBUMIN 3.7 G/DL (3.2-4.8); ALKALINE PHOSPHATASE 41 IU/L (3-129); ALT (GPT) 9 IU/L (3-49); AST (GOT) 13 IU/L (2-34); CHLORIDE 100 MEQ/L (99-109); CREATININE 1.4 MG/DL (0.6-1.3); GFR ESTIMATE (CALCULATED) 51 mL/min/ (58.99-99999); GLUCOSE 159 mg/dL (70-99); POTASSIUM 4.3 MEQ/L (3.7-5.4); SODIUM 136 MEQ/L (136-147); TOTAL BILIRUBIN 0.5 MG/DL (0.0-1.0); UREA NITROGEN (BUN) 21 mg/dL (9-23)
[2017-08-23 07:00] VITALS: BP 143/70
[2017-08-23] MEDS ORDERED: KEFLEX500 MG PO (08:58)
== END 2017-08-23 11:28 | disposition home or self-care (01) | DRG 918 ==
LOC: EME 20:41 → 5EAST 08-22 01:32 → EDOF 08-22 01:32 → ENRESERV 08-22 01:33 → 5EAST 08-22 02:23
PROVIDERS: Emergency Medicine; Hospitalist
DX: T38.3X1A Poisoning by insulin and oral hypoglycemic [antidiabetic] drugs, accidental (unintentional), initial encounter (principal); E11.649 Type 2 diabetes mellitus with hypoglycemia without coma; E11.621 Type 2 diabetes mellitus with foot ulcer; L97.429 Non-pressure chronic ulcer of left heel and midfoot with unspecified severity; L03.116 Cellulitis of left lower limb; I49.3 Ventricular premature depolarization; R00.1 Bradycardia, unspecified; I95.9 Hypotension, unspecified; E11.65 Type 2 diabetes mellitus with hyperglycemia; I12.9 Hypertensive chronic kidney disease with stage 1 through stage 4 chronic kidney disease, or unspecified chronic kidney disease; E11.22 Type 2 diabetes mellitus with diabetic chronic kidney disease; N18.3 Chronic kidney disease, stage 3 (moderate); E78.5 Hyperlipidemia, unspecified; G47.30 Sleep apnea, unspecified; I25.10 Atherosclerotic heart disease of native coronary artery without angina pectoris; I44.0 Atrioventricular block, first degree; K58.9 Irritable bowel syndrome, unspecified; Z66 Do not resuscitate; J30.9 Allergic rhinitis, unspecified; M19.90 Unspecified osteoarthritis, unspecified site; R60.0 Localized edema; E66.9 Obesity, unspecified; Z68.31 Body mass index [BMI] 31.0-31.9, adult; Z82.3 Family history of stroke; Z82.49 Family history of ischemic heart disease and other diseases of the circulatory system; Z86.73 Personal history of transient ischemic attack (TIA), and cerebral infarction without residual deficits; Z90.10 Acquired absence of unspecified breast and nipple; Z96.659 Presence of unspecified artificial knee joint
CPT/HCPCS: 71045; 80048; 80053; 81003; 82948; 83036; 84484; 85025; 85027; 85652; 87040; 93005; 93970; 99281; 99285; J0690

== ENCOUNTER 2017-10-10 03:08 | Emergency (ER) | payer OTHER ==
[~2017-10-10] VITALS: Ht 177.8 cm; Wt 94.1 kg
[~2017-10-10 03:08] MED LIST changes: +CARVEDILOL3.125 MG PO
[2017-10-10 04:24] VITALS: BP 169/77
== END 2017-10-10 04:27 ==
LOC: EXP 03:08 → EME 03:08 → EXP 04:27
DX: S76.011A Strain of muscle, fascia and tendon of right hip, initial encounter (principal); Y93.B1 Activity, exercise machines primarily for muscle strengthening; E11.9 Type 2 diabetes mellitus without complications; I10 Essential (primary) hypertension; E78.5 Hyperlipidemia, unspecified; M19.90 Unspecified osteoarthritis, unspecified site; K58.9 Irritable bowel syndrome, unspecified; G47.30 Sleep apnea, unspecified; Z79.82 Long term (current) use of aspirin; Z79.02 Long term (current) use of antithrombotics/antiplatelets; Z79.891 Long term (current) use of opiate analgesic; Z79.4 Long term (current) use of insulin; Z96.652 Presence of left artificial knee joint; Z86.73 Personal history of transient ischemic attack (TIA), and cerebral infarction without residual deficits; Z90.49 Acquired absence of other specified parts of digestive tract; Z90.10 Acquired absence of unspecified breast and nipple; Z88.2 Allergy status to sulfonamides
CPT/HCPCS: 73502; 99281; 99283